=== PATIENT | female | born 1985 | race Caucasian/White ===

== ENCOUNTER 2016-09-21 08:12 | Day surgery (SDC) | payer MEDICAID ==
[~2016-09-21] VITALS: Ht 157.5 cm; Wt 86.4 kg
--- NOTE | ~2016-09-21 | PRO ---
PATIENT:JESSICA ANN MEDICAL RECORD: [id number] : 83 LOCATION:D.OPS ADMISSION DATE: 09/21/16 PROCEDURE PERFORMED BY: NU AWAD MD DATE OF PROCEDURE: 09/21/2016 [employer]ANCH SERVICE SPECIALIST: Nu Awad MD. PROCEDURE: ERCP with biliary stent removal. INDICATION: The patient is a 30-year-old white female status post laparoscopic cholecystectomy in March of last year, and who was found to have a bile duct leak noted in early April, status post ERCP with sphincterotomy and biliary stent placement on 04/13/2016, now presents for followup ERCP to remove her stent and assure her leak has resolved. She is doing fairly well from a GI standpoint other than some vague epigastric pain. Note that she did have some duodenal erosions, probably from Toradol on her last ERCP. PREMEDICATION: Taper anesthesia. INSTRUMENT: [employer] video ERCP scope. FINDINGS: The endoscope was passed through the oropharynx to the second portion of the duodenum without difficulty. The esophagus, stomach and duodenum were unremarkable. Her biliary stent was in place at the ampulla. I removed the stent with a snare catheter. After that, I placed the ERCP catheter through the scope into the ampulla. A cholangiogram was obtained and was normal without any signs of any residual leak other than post-cholecystectomy changes. The patient tolerated the procedure well without complication. IMPRESSION: 1. Normal postcholecystectomy cholangiogram without any evidence of any residual leak. 2. Now status post biliary stent removal. 3. Otherwise, normal ERCP. RECOMMENDATIONS: 1. Prilosec 20 mg daily for a month or so. 2. Encourage avoiding ibuprofen/NSAIDs possible and can take Tylenol p.r.n. 3. Follow up with me on an as needed basis. TRANSINT:[id number] Voice Confirmation ID: [id number] DOCUMENT ID: [id number] CC: NU Banuelos MD CC: ROGER KINCAID MD [id number] DICTATION DATE: 09/21/16 1158 MOLD CLAMPER: 09/22/16 0125 [facility] 09/21/16 [id number] [place] [address]
[~2016-09-21 08:12] MED LIST: ADIPEX-P37.5 MG PO; ATIVAN0.5 MG PO; BACTRIM DS TABL1 TAB PO; HYDROCODONE-APA1 TAB PO; IBUPROFEN800 MG PO; PERCOCET 10/3251 TA1 PO; PHENERGAN25 M1 PO; TOPAMAX100 MG PO
[2016-09-21 08:59] VITALS: BP 104/76; Ht 157.5 cm; Wt 86.4 kg
[2016-09-21 09:06] LABS: BASOPHILS 0.3 % (0.0-2.0); EOSINOPHILS 1.3 % (0-7); HEMATOCRIT 39.1 % (36.0-48.0); HEMOGLOBIN 13.3 g/dL (12-16); IMMATURE GRANULOCYTES 0.2 % (0-5); LYMPHOCYTES 18.8 % (15-50); MCH 30.7 pg (26.0-34.0); MCV 90.3 fL (80.0-100.0); MEAN PLATELET VOLUME 9.8 fL (7.4-10.4); MONOCYTES 4.7 % (2-11); NEUTROPHILS 74.7 % (40-80); RBC 4.33 10x6/uL (4.00-5.40); RDW 14.7 % (11.5-14.5)
[2016-09-21 09:07] LABS: PLATELET COUNT 229 10x3/uL (130-400)
[2016-09-21 09:27] LABS: CALC OSMOLALITY 277 mosm/kg (275-300); CALCIUM 8.5 mg/dL (8.5-10.1); CARBON DIOXIDE 27.3 mmol/L (21.0-32.0); CHLORIDE - SERUM 106 mmol/L (98-107); CREATININE - SERUM 0.8 mg/dL (0.6-1.3); GLUCOSE 100 mg/dL (74-106); POTASSIUM - SERUM 3.6 mmol/L (3.5-5.1); SODIUM 140 mmol/L (136-145); UREA NITROGEN 9 mg/dL (7-18); eGFR NON AFRICAN AMERICAN 89 mL/min (90-120)
== END 2016-09-21 12:52 | disposition home or self-care (01) ==
LOC: D.OPS 08:12
PROVIDERS: Anesthesiology
DX: K83.8 Other specified diseases of biliary tract (principal)

== ENCOUNTER 2018-12-21 15:15 | Emergency (ER) | payer BC ==
[~2018-12-21] VITALS: Ht 157.5 cm; Wt 103.2 kg
[2018-12-21 15:26] VITALS: Ht 157.5 cm; Wt 103.2 kg
[2018-12-21 15:50] LABS: BASOPHILS 0.3 % (0-2); EOSINOPHILS 0.8 % (0-7); HEMATOCRIT 40.5 % (36.0-48.0); HEMOGLOBIN 14.1 g/dL (12-16); IMMATURE GRANULOCYTES 0.4 % (0-5); LYMPHOCYTES 19.3 % (15-50); MCH 30.5 pg (26.0-34.0); MCHC 34.8 g/dL (31.0-37.0); MCV 87.7 fL (80.0-100.0); MEAN PLATELET VOLUME 9.7 fL (7.4-10.4); MONOCYTES 4.3 % (2-11); NEUTROPHILS 74.9 % (40-80); RBC 4.62 10x6/uL (4.00-5.40); RDW 14.5 % (11.5-14.5); WBC 15.5 10x3/uL (4.8-10.8)
[2018-12-21 16:03] LABS: PLATELET COUNT 294 10x3/uL (130-400)
[2018-12-21 16:06] LABS: APPEARANCE CLEAR (CLEAR); BILIRUBIN NEGATIVE (NEGATIVE); COLOR YELLOW (YELLOW); GLUCOSE NEGATIVE (NEGATIVE); KETONE NEGATIVE (NEGATIVE); NITRITE POSITIVE (NEGATIVE); PROTEIN NEGATIVE (NEGATIVE); UROBILINOGEN NORMAL (NORMAL)
[2018-12-21 16:07] LABS: ALBUMIN 3.9 g/dL (3.4-5.0); ALKALINE PHOSPHATASE 79 U/L (46-116); ALT (SGPT) 30 U/L (10-68); BILIRUBIN - TOTAL 0.35 mg/dL (0.2-1.3); CALC OSMOLALITY 276 mosm/kg (275-300); CALCIUM 8.8 mg/dL (8.5-10.1); CARBON DIOXIDE 25.5 mmol/L (21.0-32.0); CHLORIDE - SERUM 103 mmol/L (98-107); CREATININE - SERUM 0.8 mg/dL (0.6-1.3); GLUCOSE 97 mg/dL (74-106); POTASSIUM - SERUM 3.9 mmol/L (3.5-5.1); SODIUM 140 mmol/L (136-145); UREA NITROGEN 8 mg/dL (7-18); eGFR NON AFRICAN AMERICAN 87 mL/min (90-120)
[2018-12-21 16:09] LABS: INR 1.06 (0.85-1.17); PROTIME 13.3 SECONDS (11.6-15.0)
[2018-12-21 16:15] LABS: BACTERIA MODERATE /hpf (NONE SEEN); RED CELLS - URINE 0-5 /hpf (0-5)
[2018-12-21 16:33] LABS: CKMB 0.4 U/L (0.0-3.6); CREATINE KINASE 91 UL (21-215); MAGNESIUM - SERUM 1.9 mg/dL (1.8-2.4)
[2018-12-21 16:39] LABS: TROPONIN-I < 0.017 ng/mL (0.000-0.060)
[2018-12-21] MEDS ORDERED: IMITREX50 MG PO (18:45)
[2018-12-21] MEDS ORDERED: CIPRO500 MG PO (18:45)
[2018-12-21 19:06] VITALS: BP 108/83
== END 2018-12-21 19:05 | disposition home or self-care (01) ==
LOC: D.ER 15:15
PROVIDERS: Family Medicine
DX: N39.0 Urinary tract infection, site not specified (principal); G43.909 Migraine, unspecified, not intractable, without status migrainosus